=== PATIENT | male | born 1955 | race Caucasian/White ===

== ENCOUNTER 2018-01-02 05:35 | Emergency (ER) | payer SELFPAY ==
[~2018-01-02] VITALS: Ht 175.3 cm; Wt 64.7 kg
[~2018-01-02 05:35] MED LIST: no home
[2018-01-02 06:15] LABS: APPEARANCE CLOUDY ((CLEAR)); BILIRUBIN NEGATIVE; BLOOD LARGE; COLOR YELLOW ((YELLOW)); GLUCOSE (STRIP) >=500; KETONES NEGATIVE; LEUKOCYTES NEGATIVE; NITRITE NEGATIVE; PROTEIN (STRIP) 100; SPECIFIC GRAVITY 1.028 (1.000-1.030); UROBILINOGEN 0.2 MG/DL (0.2-1.0)
[2018-01-02 06:19] LABS: HEMATOCRIT 45.3 % (38.0-50.0); HEMOGLOBIN 15.5 G/DL (12.5-16.6); MCH 29.9 PG (29.0-34.0); MCHC 34.2 G/DL (30.0-36.0); MCV 87.3 FL (86-99); PLATELET COUNT 199 K/uL (156-360); RBC DIS.WIDTH-CV 12.8 % (11.8-14.6); RBC DIS.WIDTH-SD 40.3 % (39-53); RED BLOOD COUNT 5.19 M/uL (4.00-5.50)
[2018-01-02 06:28] LABS: BACTERIA 1+ /HPF; EPITHELIAL CELLS RARE /HPF; MUCUS 1+ /LPF; RED BLOOD CELLS TNTC /HPF (0-5); UCUL ADDED? YES; WHITE BLOOD CELLS 0-5 /HPF (0-5)
[2018-01-02 06:29] LABS: CALCIUM OXALATE CRYSTALS 1+ /HPF
[2018-01-02 06:30] LABS: CHLORIDE 108 mEq/L (99-109); POTASSIUM 4.2 mEq/L (3.7-5.4); SODIUM 141 mEq/L (136-147)
[2018-01-02 06:32] LABS: GLUCOSE 183 mg/dL (70-99)
[2018-01-02 06:36] LABS: CREATININE 0.9 mg/dL (0.6-1.3); GFR ESTIMATE (CALCULATED) > 59 mL/min/ (58.99-99999)
[2018-01-02 06:37] LABS: UREA NITROGEN (BUN) 17 mg/dL (9-23)
[2018-01-02] MEDS ORDERED: ZOFRAN4 MG PO (07:42)
[2018-01-02] MEDS ORDERED: PERCOCET 5/31 TABLET PO (07:42)
[2018-01-02] MEDS ORDERED: FLOMAX0.4 MG PO (07:42)
[2018-01-02 08:55] VITALS: BP 110/76
== END 2018-01-02 08:56 | disposition home or self-care (01) ==
LOC: EME → EDBD 05:35 → EME 08:56
DX: N13.2 Hydronephrosis with renal and ureteral calculous obstruction (principal); Z87.442 Personal history of urinary calculi; K21.9 Gastro-esophageal reflux disease without esophagitis
CPT/HCPCS: 74176; 80048; 81003; 85027; 87086; 99281; 99285; J1885; J2405; J3010